=== PATIENT | female | born 1960 | race Caucasian/White ===

== ENCOUNTER → 2017-01-16 | Outpatient (CLI) | payer OTHER | LOC: FIMAGING 11:39 | DX: Z12.31 Encounter for screening mammogram for malignant neoplasm of breast (principal) | CPT/HCPCS: G0202 ==

== ENCOUNTER → 2018-01-19 | Outpatient (CLI) | payer OTHER | LOC: FIMAGING 14:07 | PROVIDERS: ATTEND Obstetrics & Gynecology | DX: Z12.31 Encounter for screening mammogram for malignant neoplasm of breast (principal) ==

== ENCOUNTER → 2018-01-25 | Outpatient (CLI) | payer OTHER | LOC: FIMAGING 14:47 | PROVIDERS: ATTEND Obstetrics & Gynecology | DX: Z13.820 Encounter for screening for osteoporosis (principal); M85.89 Other specified disorders of bone density and structure, multiple sites; Z78.0 Asymptomatic menopausal state ==

== ENCOUNTER 2018-01-27 10:50 | Emergency (ER) | payer OTHER ==
[2018-01-27] MEDS: LET GEL TOPICAL 1 EA SYR TP ONE ×2 (11:10→11:26)
[2018-01-27 11:13] VITALS: TEMP 97.9
[2018-01-27] MEDS ORDERED: TDAP ADULT 0.5 ML INJ (BOOSTRIX) IM ONE (11:21)
--- NOTE | 2018-01-27 11:45 | EDPHY ---
H & P Time Seen by Provider: 01/27/18 11:02 HPI/ROS: 57-year-old female presents complaining of dog bite to her right palm. Review of systems As per HPI General no fever no chills no weakness HEENT no eye pain no eye discharge. No eye redness, no sore throat Respiratory no cough, no shortness of breath Cardiac no chest pain, no peripheral edema GI no abdominal pain, no diarrhea, no constipation, no nausea, no vomiting no flank pain, no hematuria, no dysuria Musculoskeletal no myalgias, no joint pain Heme no easy bruising, no easy bleeding Endo no polyuria, no polydipsia Skin no rashes, no pruritus Neuro no syncope, no dizziness, no headaches Psych is no suicidal ideation, no homicidal ideation Past Medical/Surgical History: Hypothyroidism Social History: Denies alcohol or drug use Smoking Status: Former smoker Physical Exam: Alert and oriented in no acute distress nontoxic appearance, afebrile Atraumatic normocephalic Neck no JVD Lungs clear to auscultation, no respiratory distress Heart regular rate and rhythm Extremities no cyanosis clubbing edema Right hand Right palm 2.5 cm jagged laceration on thenar eminence No tendon involvement, no foreign body Full range of motion of all digits, good capillary refill Sensation intact Constitutional: Initial Vital Signs Temperature (C) 36.6 C 01/27/18 11:10 Heart Rate 77 01/27/18 11:10 Respiratory Rate 16 01/27/18 11:10 Blood Pressure 161/102 H 01/27/18 11:10 O2 Sat (%) 94 01/27/18 11:10 O2 Delivery Mode Room Air Allergies/Adverse Reactions: niacin Allergy (Verified 01/27/18 11:09) Home Medications: Medication Instructions Recorded Hormone Replacement 10/11/15 Thyroid 10/11/15 Amoxicillin/Clavulanate Pot 875 mg PO BID #14 tab 01/27/18 [Augmentin 875 MG TAB (*)] Medical Decision Making Procedures: Procedure note-laceration The wound was irrigated with copious amounts of saline. Lidocaine 1% was used for local anesthetic. Five simple interrupted sutures were placed. 4-0 Ethilon was used. Patient tolerated procedure well. ED Course/Re-evaluation: Patient seen and evaluated for dog bite to right palm. Impression Dog bite with gaping laceration Plan Extensive irrigation Suture loosely Start Augmentin 875 twice daily x7 days Return in 10 days for suture removal Education on reasons to return earlier extensive education on signs of infection , and risk of infection following a dog bite. - Data Points Medications Given: Discontinued Medications Diphtheria/Tetanus/Acell Pertussis (Boostrix) 0.5 ml IM .ONCE ONE Stop: 01/27/18 11:22 Last Admin: 01/27/18 11:26 Dose: 0.5 ml Tetracaine/Epinephrine/Lidocaine (Let Gel Topical) 1 ea TP EDNOW ONE Stop: 01/27/18 11:05 Last Admin: 01/27/18 11:10 Dose: 1 ea Departure - Departure Disposition: Home, Routine, Self-Care Clinical Impression: Dog bite of right hand without complication Condition: Good Instructions: Animal Bite (ED), Care For Your Stitches (ED), Laceration (ED), Tdap and Td Vaccines in Adults (ED), Stitches Removal (ED) Referrals: [facility] [Other] - As per Instructions Prescriptions: Amoxicillin/Clavulanate Pot [Augmentin 875 MG TAB (*)] 875 mg PO BID #14 tab
[2018-01-27 13:15] VITALS: BP 148/88; PULSE 72; RESP 14; O2SAT 95
== END 2018-01-27 12:45 | disposition home or self-care (01) ==
LOC: CED 10:50
PROC: 0HQFXZZ Repair Right Hand Skin, External Approach (ICD-10-PCS; principal; 2018-01-27)
DX: S61.451A Open bite of right hand, initial encounter (principal); Z23 Encounter for immunization; Z87.891 Personal history of nicotine dependence; W54.0XXA Bitten by dog, initial encounter

== ENCOUNTER → 2019-01-27 | Outpatient (CLI) | payer OTHER | LOC: EMCIMAGING 13:14 | PROVIDERS: ATTEND Obstetrics & Gynecology | DX: Z12.31 Encounter for screening mammogram for malignant neoplasm of breast (principal) | CPT/HCPCS: 77067-PN ==